=== PATIENT | female | born 1940 | race Two or more races ===

== ENCOUNTER 2022-12-02 12:55 | Inpatient (IN) | payer OTHER ==
[~2022-12-02] VITALS: Ht 165.1 cm; Wt 83.0 kg
[2022-12-02] MEDS ORDERED: METFORMIN HCL500 M3 PO (13:30)
[2022-12-02 16:45] LABS: HEMATOCRIT 36.2 % (36.0-45.00); HEMOGLOBIN 11.9 g/dL (12.0-15.00); MEAN CELL VOLUME 82.5 fL (80.00-100.00); MEAN CORPUSCULAR HGB CONC 32.8 g/dl (32.0-36.0); PLATELET COUNT 220 K/uL (150-450); RED BLOOD COUNT 4.39 M/uL (4.00-6.00); RED CELL DISTRIBUTION WIDTH 15.5 % (11.5-14.5)
[2022-12-02 17:14] LABS: INR 1.1; PARTIAL THROMBOPLASTIN TIME 28.1 SECONDS (22.0-34.0); PROTHROMBIN TIME 11.5 SECONDS (9.0-11.5)
[2022-12-02 17:19] LABS: ALBUMIN 3.8 gm/dL (3.4-5.0); BILIRUBIN TOTAL 0.27 mg/dL (0.3-1.2); CALCIUM 9.9 mg/dL (8.5-10.1); CREATININE SERUM 1.33 mg/dL (0.55-1.02); GFR 38.01; GLOBULINA 4.4 G/DL (2.4-3.5); POTASSIUM 4.73 mEq/L (3.5-5.1); TOTAL PROTEIN 8.2 gm/dL (6.4-8.2)
[2022-12-02 19:18] LABS: URINE APPEARANCE Clear; URINE BILIRRUBIN Negative (NEGATIVE); URINE BLOOD Negative; URINE COLOR Yellow; URINE GLUCOSE Negative (NEGATIVE); URINE LEUKOCYTE Small; URINE NITRATE Positive; URINE PROTEIN Negative (NEGATIVE); URINE UROBILINOGEN 0.2 E.U./dl
[2022-12-02 19:21] LABS: URINE EPITHELIAL CELLS 4.7 uL (0.0-38.8); URINE RBC 3.8 uL (0.0-20.8); URINE WBC 147.3 uL (0.0-23.2)
[2022-12-02 20:07] LABS: URINE BACTERIA > 9821.5 uL (0.0-1933)
[2022-12-04 07:31] LABS: HEMATOCRIT 36.1 % (36.0-45.00); HEMOGLOBIN 11.6 g/dL (12.0-15.00); MEAN CELL VOLUME 83.8 fL (80.00-100.00); MEAN CORPUSCULAR HEMOGLOBIN 26.8 pg (27.00-32.0); PLATELET COUNT 202 K/uL (150-450); RED BLOOD COUNT 4.31 M/uL (4.00-6.00); RED CELL DISTRIBUTION WIDTH 15.1 % (11.5-14.5)
[2022-12-04 07:54] LABS: INR 1.14; PROTHROMBIN TIME 11.9 SECONDS (9.0-11.5)
[2022-12-04 07:57] LABS: COL EPI 111 SECONDS (82-175)
[2022-12-04 08:04] LABS: CALCIUM 9.2 mg/dL (8.5-10.1); CREATININE SERUM 0.88 mg/dL (0.55-1.02); GFR 61.22; POTASSIUM 4.27 mEq/L (3.5-5.1)
[2022-12-04 22:31] LABS: HEMOGLOBIN 11.7 g/dL (12.0-15.00); MEAN CELL VOLUME 83.2 fL (80.00-100.00); MEAN CORPUSCULAR HEMOGLOBIN 26.9 pg (27.00-32.0); MEAN CORPUSCULAR HGB CONC 32.4 g/dl (32.0-36.0); PLATELET COUNT 209 K/uL (150-450); RED BLOOD COUNT 4.33 M/uL (4.00-6.00); RED CELL DISTRIBUTION WIDTH 15.4 % (11.5-14.5)
[2022-12-04 22:59] LABS: ALBUMIN 3.3 gm/dL (3.4-5.0); CALCIUM 9.3 mg/dL (8.5-10.1); CREATININE SERUM 0.92 mg/dL (0.55-1.02); GFR 58.16; PHOSPHOROUS 3.7 mg/dL (2.5-4.9)
[2022-12-04 23:01] LABS: MAGNESIUM 1.3 mg/dL (1.8-2.4)
[2022-12-05 06:23] LABS: HEMATOCRIT 32.8 % (36.0-45.00); HEMOGLOBIN 10.5 g/dL (12.0-15.00); MEAN CELL VOLUME 83.7 fL (80.00-100.00); MEAN CORPUSCULAR HEMOGLOBIN 26.8 pg (27.00-32.0); PLATELET COUNT 197 K/uL (150-450); RED BLOOD COUNT 3.92 M/uL (4.00-6.00); RED CELL DISTRIBUTION WIDTH 14.9 % (11.5-14.5)
[2022-12-05 07:06] LABS: ALBUMIN 2.9 gm/dL (3.4-5.0); CREATININE SERUM 0.86 mg/dL (0.55-1.02); GFR 62.86; PHOSPHOROUS 3.7 mg/dL (2.5-4.9); POTASSIUM 4.15 mEq/L (3.5-5.1)
[2022-12-05 10:09] LABS: ABG PH 7.344 (7.35-7.45); ABG pCO2 38.6 mmHg (35-45); BASE EXCESS -4.7 mmol/l; BICARBONATE 20.5 mmol/l (23-25); SaO2 97.6 %; Tco2 21.7 mmol/l; allen test SATISFACTORY; o2 32 %; puncture site RADIAL LEFT
[2022-12-06 08:05] LABS: HEMATOCRIT 33.3 % (36.0-45.00); HEMOGLOBIN 10.6 g/dL (12.0-15.00); MEAN CELL VOLUME 84.1 fL (80.00-100.00); MEAN CORPUSCULAR HEMOGLOBIN 26.8 pg (27.00-32.0); MEAN CORPUSCULAR HGB CONC 31.9 g/dl (32.0-36.0); PLATELET COUNT 183 K/uL (150-450); RED BLOOD COUNT 3.96 M/uL (4.00-6.00); RED CELL DISTRIBUTION WIDTH 15.3 % (11.5-14.5)
[2022-12-06 08:48] LABS: CREATININE SERUM 0.95 mg/dL (0.55-1.02); GFR 56.04; MAGNESIUM 1.7 mg/dL (1.8-2.4); PHOSPHOROUS 2.1 mg/dL (2.5-4.9); POTASSIUM 4.13 mEq/L (3.5-5.1)
[2022-12-07] MEDS ORDERED: NEURONTIN300 MG PO (13:07)
[2022-12-07] MEDS ORDERED: ACETAMINOPHEN500 M2 PO (13:07)
== END 2022-12-07 17:24 | disposition home or self-care (01) | DRG 330 ==
LOC: ER 12:55 → SURH 17:29
PROVIDERS: General Practice; Internal Medicine Geriatric Medicine; ADMIT Surgery; ATTEND Surgery
PROC: 0DBP4ZZ Excision of Rectum, Percutaneous Endoscopic Approach (ICD-10-PCS; 2022-12-04)
PROC: 07BC4ZZ Excision of Pelvis Lymphatic, Percutaneous Endoscopic Approach (ICD-10-PCS; 2022-12-04)
PROC: 0DJD8ZZ Inspection of Lower Intestinal Tract, Via Natural or Artificial Opening Endoscopic (ICD-10-PCS; 2022-12-04)
PROC: 0DTN4ZZ Resection of Sigmoid Colon, Percutaneous Endoscopic Approach (ICD-10-PCS; principal; 2022-12-04 15:00)
PROC: 4A12X4Z Monitoring of Cardiac Electrical Activity, External Approach (ICD-10-PCS; 2022-12-05)
PROC: 3E0F7SF Introduction of Other Gas into Respiratory Tract, Via Natural or Artificial Opening (ICD-10-PCS; 2022-12-05)
DX: K56.699 Other intestinal obstruction unspecified as to partial versus complete obstruction (principal); N39.0 Urinary tract infection, site not specified; K57.30 Diverticulosis of large intestine without perforation or abscess without bleeding; R59.0 Localized enlarged lymph nodes; D64.89 Other specified anemias; I13.10 Hypertensive heart and chronic kidney disease without heart failure, with stage 1 through stage 4 chronic kidney disease, or unspecified chronic kidney disease; E11.22 Type 2 diabetes mellitus with diabetic chronic kidney disease; N18.30 Chronic kidney disease, stage 3 unspecified; G47.39 Other sleep apnea; B96.29 Other Escherichia coli [E. coli] as the cause of diseases classified elsewhere; B96.1 Klebsiella pneumoniae [K. pneumoniae] as the cause of diseases classified elsewhere; Z79.84 Long term (current) use of oral hypoglycemic drugs